=== PATIENT | female | born 1950 | race Caucasian/White ===

== ENCOUNTER 2020-08-01 09:06 | Day surgery (SDC) | payer MEDICARE, BC ==
[~2020-08-01] VITALS: Ht 162.6 cm; Wt 97.7 kg
[2020-08-01 09:19] VITALS: BP 145/75
[2020-08-01] MEDS ORDERED: fentaNYL/PF 50MCG/1 ML 2ML syringe ONE (09:32)
[2020-08-01] MEDS ORDERED: ondansetron/PF 4mg/2ml inj ONE (09:32)
[2020-08-01] MEDS ORDERED: MIDAZolam 1 MG/ML 5ML VIAL ONE (09:32)
[2020-08-01] MEDS ORDERED: LIDOcaine Viscous 15ml cup ONE (09:32)
[2020-08-01] MEDS ORDERED: LEVO75TA7 PO (09:40)
[2020-08-01] MEDS ORDERED: LOSA1TAB36 PO (09:40)
[2020-08-01] MEDS ORDERED: OMEP-50 PO (09:40)
[2020-08-01] MEDS ORDERED: BUDE10.2 INH (09:41)
[2020-08-01] MEDS ORDERED: ALBU8.5H8 IH (09:42)
[2020-08-01] MEDS ORDERED: MULT-1085 PO (09:43)
[2020-08-01] MEDS ORDERED: CHOL20002 PO (09:44)
[2020-08-01] MEDS ORDERED: BIOT1CAP3 PO (09:45)
[2020-08-01] MEDS ORDERED: ASCO-407 (09:46)
[2020-08-01] MEDS ORDERED: CALC-467 (09:46)
[2020-08-01] MEDS ORDERED: FAMO-128 PO (09:47)
[2020-08-01] MEDS ORDERED: ondansetron/PF 4mg/2ml inj IV ONE (09:50)
[2020-08-01 10:09] VITALS: BP 148/69
[2020-08-01 10:12] VITALS: BP 135/66
[2020-08-01 10:22] VITALS: BP 135/67
[2020-08-01 10:32] VITALS: BP 142/61
== END 2020-08-01 10:45 | disposition home or self-care (01) ==
LOC: GI LAB 09:06
PROVIDERS: ATTEND Internal Medicine Gastroenterology
DX: R12 Heartburn (principal); R14.0 Abdominal distension (gaseous); K29.50 Unspecified chronic gastritis without bleeding; K44.9 Diaphragmatic hernia without obstruction or gangrene; K22.8 Other specified diseases of esophagus; K20.80 Other esophagitis without bleeding; I10 Essential (primary) hypertension; J45.909 Unspecified asthma, uncomplicated; E66.9 Obesity, unspecified; Z68.37 Body mass index [BMI] 37.0-37.9, adult; Z79.899 Other long term (current) drug therapy
CPT/HCPCS: 43239; G0500; J2250; J2405; J3010; J7040; 88305; 99152; A4620

== ENCOUNTER 2025-02-16 11:13 | Outpatient (CLI) | payer MEDICARE, BC ==
[~2025-02-16 11:13] MED LIST: ALBU8.5H17 IH; ASCO-407; BIOT1CAP3 PO; BUDE10.2 INH; CALC-467; CHOL20002 PO; FAMO-128 PO; LEVO75TA7 PO; LOSA1TAB36 PO; MULT-1085 PO; OMEP20CA16 PO
--- NOTE | 2025-02-16 13:42 | RADIOLOGY REPORT ---
EXAM: MR MRI LUMBAR SPINE CLINICAL HISTORY: LOW BACK PAIN; CRAMP AND SPASM COMPARISON: None TECHNIQUE: MRI imaging of the lumbar was performed on a MRI imaging system without intravenous contrast. FINDINGS GENERAL Multilevel disc degeneration. Alignment: No spondylolisthesis identified. Vertebrae: Vertebral body height is well maintained without evidence of a recent compression fracture. Conus: Conus medullaris terminates at the T12-L1 level. T12-L1: Disc desiccation. No spinal canal or neural foraminal stenosis. The facet joints are normal. L1-2: The disc configuration is normal. No spinal canal or neural foraminal stenosis. The facet joints are normal. L2-3: The disc configuration is normal. No spinal canal or neural foraminal stenosis. Facet arthrosis. L3-4: Disc desiccation and disc bulge. Mild spinal canal stenosis. Bilateral subarticular zone stenosis with left descending L4 nerve root compression. Mild right and moderate left foraminal stenosis. Facet arthrosis. L4-5: Disc desiccation and disc bulge. Moderate spinal canal stenosis. Bilateral subarticular zone stenosis with left descending L5 nerve root compression. Mild bilateral foraminal stenosis. Facet arthrosis. L5-S1: Disc bulge with superimposed central disc protrusion. No spinal canal stenosis. Mild right foraminal stenosis. Facet arthrosis. Hemangioma L1 vertebral body. IMPRESSION: 1. Multilevel disc degeneration. Multilevel spinal canal stenosis, most pronounced and moderate at L4-L5. Multilevel foraminal stenosis, most pronounced and moderate at L3-L4.
== END 2025-02-16 23:59 | disposition home or self-care (01) ==
LOC: MRI02 11:13
PROVIDERS: ATTEND Nurse Practitioner Family
DX: M51.17 Intervertebral disc disorders with radiculopathy, lumbosacral region (principal); M54.50 Low back pain, unspecified; R30.0 Dysuria; R35.0 Frequency of micturition; R25.2 Cramp and spasm; M48.07 Spinal stenosis, lumbosacral region; M47.27 Other spondylosis with radiculopathy, lumbosacral region
CPT/HCPCS: 72148